=== PATIENT | female | born 1985 | race Caucasian/White ===

== ENCOUNTER 2016-07-12 15:08 | Inpatient (IN) | payer BC ==
[~2016-07-12] VITALS: Ht 170.2 cm; Wt 84.0 kg
[~2016-07-12 15:08] MED LIST: DOCO100C3; FOLI0.4T2 PO; PREN-92 PO
[2016-07-12] MEDS ORDERED: LR 1,000 ML IV PRN (15:22)
[2016-07-12] MEDS ORDERED: CALCIUM CARBONATE 500mg Chewable TAB PO PRN ×2 (15:30→16:45)
[2016-07-12] MEDS ORDERED: MAG-AL + SIM LIQUID 30 ML UDC PO PRN ×2 (15:30→16:45)
[2016-07-12] MEDS ORDERED: ACETAMINOPHEN 500 MG TABLET PO PRN ×2 (15:30→16:45)
[2016-07-12] MEDS ORDERED: LIDOCAINE 1% (10mg/ml) 2ml SDV ID PRN (15:30)
[2016-07-12 15:39] VITALS: BP 123/68; PULSE 67; RESP 18; TEMP 97; O2SAT 99
[2016-07-12 15:39] LABS: HCT - HEMATOCRIT 41.7 % (36-46); HGB - HEMOGLOBIN 14.2 GM/DL (12-16); MEAN CORPUSCULAR HGB 32.7 UUG (26-34); MEAN CORPUSCULAR HGB CONC(MCHC 34.1 GM/DL (31-37); MEAN CORPUSCULAR VOLUME 96.1 UM3 (80-100); MEAN PLATELET VOLUME 11.2 UM3 (9.4-12.4); RED BLOOD COUNT 4.34 M/MM3 (4.00-5.20); WBC - WHITE BLOOD COUNT 13.3 T/MM3 (4.5-11.0)
--- OUTSIDE RECORDS SUMMARY | 2016-07-12 15:48 | XMS REPORT | Continuity of Care Document ---
Author Author [facility] Organization [facility] Address Unknown Phone Unavailable Support Name Relationship Address Phone Leann FABIAN MD Caregiver [address] [place] [address] Unavailable HOLLIE ZHU MD Caregiver [address] [place] [address] [place] [address] Unavailable ASHLEIGH STACY Next Of Kin Unknown [phone] C Insurance Providers Guarantor Carlos Sotelo Address [address] [place] [address] Email [email or web address] [facility] Policy Number [id number] Subscriber's Name Alcon Sotelo Relationship 01 Spouse Group Number [id number] Advance Directives Directive Response Recorded Date/Time Ordered Resuscitation Status Full Code 07/03/16 12:48am Problems Active Problems Medical Problem Onset Date Status Term , repeat Unknown Acute Medications Current Home Medications Medication Dose Units Route Directions Days Qty Instructions Start Date Docosahexanoic Acid (Dha) 100 Mg Capsule 06/17/16 Folic Acid 0.4 Mg Tablet 1 Tab Oral Daily 06/17/16 Vits W-Ca,Fe,Fa(<1MG) ( Vitamins) 1 Tab Tablet 1 Tab Oral 08/26/12 Past Home Medications Medication Directions Ordered Status Folic Acid 0.4 Mg Tablet, 0.4 Mg Oral 08/26/12 Discontinued Social History Social History Problem Response Recorded Date/Time Onset Date Status Hx Substance Use No 06/17/2016 8:57am Not Applicable Not Applicable Has the pt used tobacco in the last 12 months No 06/17/2016 8:57am Not Applicable Not Applicable Hospital Discharge Instructions No hospital discharge instructions. Plan of Care Discharge Date 07/03/16 1:32am Prescriptions See Medication Section Functional Status No functional status results. Allergies, Adverse Reactions, Alerts Allergen Type Severity Reaction Status Last Updated Progesterone Allergy Mild HIVES Active 07/31/14 Immunizations Query Response on File Recorded Date/Time Hx Influenza Vaccination Y 02/09/14 08/21/14 4:07pm Hx Pneumococcal Vaccination No 08/21/14 4:07pm Hx Tetanus, Diptheria, Pertussis Y 07/03/14 08/21/14 4:07pm Hx Influenza Vaccination Y 02/09/14 08/21/14 4:07pm Hx Tetanus Diptheria No 08/21/14 4:07pm Hx Tetanus, Diptheria, Pertussis Y 07/03/14 08/21/14 4:07pm Hx Tetanus Toxoid Vaccination No 08/21/14 4:07pm Influenza Vaccine Hx 01/29/16 06/17/16 8:57am Tdap Vaccine Hx 05/26/15 06/17/16 8:57am Vital Signs Acute Vital Signs Vital Response Date/Time Height (Feet) 5 feet 06/17/2016 8:57am Height (Inches) 7.00 inches 06/17/2016 8:57am Results No known relevant diagnostic tests, laboratory data and/or discharge summary. Procedures No known history of procedures. Encounters Encounter Location Arrival/Admit Date Discharge/Depart Date Attending Provider Departed Clinic [facility] 07/03/16 12:44am 07/03/16 1:32am HOLLIE ZHU MD
--- OUTSIDE RECORDS SUMMARY | 2016-07-12 15:48 | XMS REPORT | Summary of Care ---
Author Author Remedios Hogan M.D. Organization Unknown Address [address], [place] [id number] Phone Unavailable Care Team Providers Care Singer Back Tender Name Role Phone Remedios Hogan M.D. 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 * Refills: 0 Remedios Hogan M.D.* Started 06-Feb-2015 ActiveGNP Ibuprofen 200 MG Oral Tablet prn * Refills: 0 Remedios Hogan M.D.* Started 06-Feb-2015 Active Allergies and Adverse Reactions Name Dates Details hydroxyprogesterone Status: Active Procedures Procedure Dates Details Procedures not documented Immunization Name Dates Details Immunizations not documented Social History Name Dates Details Smoking Status* Never smoker Vital Signs Date Test Result Details 15-Feb-2015 09:00 BP Systolic 124 mm[Hg] Status: BP Diastolic 69 mm[Hg] Status: Heart Rate 69 /min Status: Height 65.5 in Status: Weight 151 lb Status: Body Mass Index Calculated 24.75 kg/m2 Status: Body Surface Area Calculated 1.77 m2 Status: 06-Feb-2015 09:32 BP Systolic 123 mm[Hg] Status: BP Diastolic 67 mm[Hg] Status: Temperature 97.5 f Status: Heart Rate 60 /min Status: Height 78.25 in Status: Weight 149 lb Status: O2 SAT 96 % Status: Body Mass Index Calculated 17.11 kg/m2 Status: Body Surface Area Calculated 2 m2 Status: Results Date Description Value Details Results not documented Plan of Care Planned Observations* Name Dates Details Planned Goals not documented Goal Instructions * Instructions not documented Encounters Appointment; Remedios Hogan Encounter Diagnosis: Problem not documented On 15-Feb-2015 09:00 Appointment; Remedios Hogan Encounter Diagnosis: Problem not documented On 06-Feb-2015 09:30
--- OUTSIDE RECORDS SUMMARY | 2016-07-12 15:48 | XMS REPORT | Summary of Care ---
Author Author Remedios Hogan M.D. Organization Unknown Address [address], [place] [id number] Phone Unavailable Care Team Providers Care Cloth Classer Name Role Phone Remedios Hogan M.D. Unavailable Unavailable Dominic Boogie PP Unavailable Functional Status Functional Status Health Issues* [...] smoker Vital Signs Date Test Result Details 06-Feb-2015 09:32 BP Systolic 123 mm[Hg] Status: [...] Dates Details Planned Goals not documented Goal Planned Encounters* Appointment; Provider: Remedios Hogan On 15-Feb-2015 09:00 Instructions * Instructions not documented Encounters Appointment; Remedios Hogan Encounter Diagnosis: Problem not documented On 06-Feb-2015 09:30
--- OUTSIDE RECORDS SUMMARY | 2016-07-12 15:49 | XMS REPORT | Summary of Care ---
Author Author Remedios Hogan M.D. Organization Unknown Address [address], [place] [id number] Phone Unavailable Care Team Providers Care Clinical Rehab Specialist Name Role Phone Remedios Hogan M.D. Unavailable [...]
[2016-07-12] MEDS ORDERED: OXYTOCIN 30 UNIT in D5LR 500 ML IV ONE (16:33)
[2016-07-12] MEDS ORDERED: OXYTOCIN 30 UNIT in D5W 500 ML IV ONE (16:33)
[2016-07-12] MEDS ORDERED: HYDROCODONE/APAP 5 mg/325 mg TABLET PO PRN (16:45)
[2016-07-12] MEDS ORDERED: MILK OF MAGNESIA 30 ML SUSP PO PRN (16:45)
[2016-07-12] MEDS ORDERED: HYDROCORTISONE 2.5% CREAM 30 GM RECTALLY PRN (16:45)
[2016-07-12] MEDS ORDERED: PHENYLEPHRINE RECTAL SUPPOSITORY RECTALLY PRN (16:45)
[2016-07-12] MEDS ORDERED: DiphenhydrAMINE 25 MG CAPSULE PO PRN (16:45)
--- NOTE | 2016-07-12 16:57 | LDNF ---
DATE OF DELIVERY: 07/12/2016 DIAGNOSES 1. 30-year-old white female, G3, P2 at 39.0 weeks gestational age. 2. Spontaneous labor. 3. Spontaneous vaginal delivery. 4. History of labor with first delivery. 5. Artificial rupture of membranes. 6. Meconium-stained amniotic fluid. 7. Female , 8/9 Apgars, 3145 g (6 pounds 15 ounces) (Britney Calvo). This is a patient of Dr. Hines who was set up for an induction two days from now for logistics. She is 39.0 weeks today and she came in in spontaneous labor. Her initial cervical check was 6 cm dilated and the bag of water intact. She was admitted and we called for a block but she made it to complete dilation before Anesthesia arrived so I broke her water and three contractions later we had a delivery. There was light meconium-stained fluid. She delivered unblocked from the OA position. Infant was bulb suctioned after delivery of the head and then again after delivery of the body. Cord was doubly clamped and cut after allowing it to drain for 90 seconds first. The 's father cut the cord. The infant was initially placed on the mother's abdomen. The placenta delivered spontaneously intact five minutes later. The perineum was intact. Maternal blood type is A+, rubella is immune and GBS is negative. At time of dictation mother and infant are doing well. [facility]
[2016-07-12] MEDS: IBUPROFEN 800 MG TABLET PO PRN (17:01)
[2016-07-12 19:10] VITALS: PULSE 64; RESP 20; TEMP 97.9; O2SAT 100
[2016-07-12 19:15] VITALS: BP 115/61
[2016-07-12 20:10] VITALS: BP 119/64; PULSE 62; RESP 16; TEMP 97.9; O2SAT 97
[2016-07-13 00:15] VITALS: BP 119/81; PULSE 69; RESP 18; TEMP 97.6; O2SAT 99
[2016-07-13] MEDS: IBUPROFEN 800 MG TABLET PO PRN ×3 (00:16→18:13)
[2016-07-13 06:25] LABS: HCT - HEMATOCRIT 38.7 % (36-46); HGB - HEMOGLOBIN 13.2 GM/DL (12-16); MEAN CORPUSCULAR HGB 32.8 UUG (26-34); MEAN CORPUSCULAR HGB CONC(MCHC 34.1 GM/DL (31-37); MEAN PLATELET VOLUME 11.2 UM3 (9.4-12.4); RED BLOOD COUNT 4.03 M/MM3 (4.00-5.20); WBC - WHITE BLOOD COUNT 15.3 T/MM3 (4.5-11.0)
[2016-07-13 08:07] VITALS: BP 123/75; PULSE 75; RESP 16; TEMP 98.3; O2SAT 98
[2016-07-13] MEDS ORDERED: DOCUSATE CALCIUM 240 MG CAPSULE PO SCH (09:00)
--- NOTE | 2016-07-13 10:02 | PNPDOC ---
[facility] Prog Note 07/13/16 vss af doing well desires dc today rx motrin per pt request pp appt already made instructions reviewed q&a-GIRMA Calderon MD Jul 13, 2016 10:02
[2016-07-13] MEDS ORDERED: IBUP-1547 PO (10:05)
== END 2016-07-13 18:20 | disposition home or self-care (01) | DRG 775 ==
LOC: MC 15:08 → OBOBS 15:08 → MC 15:22 → OBOBS 15:22 → EDSTATUS 07-19 15:10
PROVIDERS: ADMIT Obstetrics & Gynecology; ATTEND Obstetrics & Gynecology
PROC: 10E0XZZ Delivery of Products of Conception, External Approach (ICD-10-PCS; principal; 2016-07-12)
PROC: 10907ZC Drainage of Amniotic Fluid, Therapeutic from Products of Conception, Via Natural or Artificial Opening (ICD-10-PCS; 2016-07-12)
DX: O77.0 Labor and delivery complicated by meconium in amniotic fluid (principal); O09.213 Supervision of pregnancy with history of pre-term labor, third trimester; Z3A.39 39 weeks gestation of pregnancy; Z37.0 Single live birth
CPT/HCPCS: 36415; 85027